=== PATIENT | male | born 1990 | race Caucasian/White ===

== ENCOUNTER 2016-10-18 14:05 | Outpatient (RCR) | payer OTHER ==
[~2016-10-18 14:05] MED LIST: CEPHALEXIN500 M1 PO; CLINDAMYCIN HC300 MG PO; LORTAB 5/500 501 TAB PO; NO HOME MEDICATIONS; NORCO 325 MG-51 TAB PO
== END 2017-01-16 ==
LOC: WSOH
DX: S90.212A Contusion of left great toe with damage to nail, initial encounter (principal); W22.8XXA Striking against or struck by other objects, initial encounter; Y99.0 Civilian activity done for income or pay